=== PATIENT | female | born 1975 | race Caucasian/White ===

== ENCOUNTER → 2017-05-07 | Outpatient (CLI) | payer BC, OTHER ==
--- NOTE | 2017-05-07 10:04 | Diagnostic Imaging Report ---
Bilateral screening mammogram 2D views with tomosynthesis The current study was also evaluated with a Computer Aided Detection (CAD) system. Indication: Screening. No current complaints stated on the questionnaire. COMPARISON: 05/08/2016. Findings: The breasts are composed of heterogeneously dense parenchyma which may decrease mammographic sensitivity. No mass, architectural distortion or suspicious cluster of calcification developed from the previous exams. Allowing for technique and positional differences, no suspicious change is seen. IMPRESSION: Dense breasts with no definite change. ACR BI-RADS Category 2: Benign findings. Result letter will be mailed to the patient. Note: At least 10% of breast cancer is not imaged by mammography. Dictated by: Dictated on workstation # [id number]
== END ==
LOC: RAD 07:19
PROVIDERS: ATTEND Obstetrics & Gynecology
DX: Z12.31 Encounter for screening mammogram for malignant neoplasm of breast (principal)
CPT/HCPCS: 77067

== ENCOUNTER → 2018-05-09 | Outpatient (CLI) | payer OTHER ==
--- NOTE | 2018-05-09 09:23 | Diagnostic Imaging Report ---
Indication: Routine screening. Comparison is made with prior mammogram from 05/07/2017 and 05/08/2016. 2-D and 3-D bilateral screening mammography was performed with CAD. Both breasts remain heterogeneously dense, limiting the sensitivity of mammography. The parenchymal pattern is stable. No dominant mass or malignant-appearing microcalcifications are seen. The axillae are unremarkable. Impression: BI-RADS category 1 No mammographic features suspicious for malignancy are identified. Dictated by: Dictated on workstation # [id number]
== END ==
LOC: RAD 07:20
PROVIDERS: ATTEND Obstetrics & Gynecology
DX: Z12.31 Encounter for screening mammogram for malignant neoplasm of breast (principal)
CPT/HCPCS: 77067

== ENCOUNTER → 2019-05-15 | Outpatient (CLI) | payer OTHER ==
--- NOTE | 2019-05-15 12:06 | Diagnostic Imaging Report ---
INDICATION: Routine screening. COMPARISON: Comparison is made with prior mammograms from 05/09/2018 and 05/07/2017. TECHNIQUE: 2-D and 3-D bilateral screening mammography was performed. The current study was also evaluated with a Computer Aided Detection (CAD) system. 3-D tomosynthesis was also performed and reviewed. FINDINGS: Both breasts are heterogeneously dense, limiting the sensitivity of mammography. The parenchymal pattern is stable. No mass or malignant-appearing microcalcifications are seen. Axillae are unremarkable. IMPRESSION: No mammographic features suspicious for malignancy are identified. ACR BI-RADS Category 1: Negative. Result letter will be mailed to the patient. Note: At least 10% of breast cancer is not imaged by mammography. Dictated by: Dictated on workstation # [id number]
== END ==
LOC: RAD 07:52
PROVIDERS: ATTEND Obstetrics & Gynecology
DX: Z12.31 Encounter for screening mammogram for malignant neoplasm of breast (principal)
CPT/HCPCS: 77067

== ENCOUNTER → 2020-05-25 | Outpatient (CLI) | payer OTHER ==
--- NOTE | 2020-05-25 09:33 | Diagnostic Imaging Report ---
INDICATION: Routine screening. Comparison is made with prior mammogram from 05/15/2019 and 05/09/2018. 2-D and 3-D bilateral screening mammography was performed with CAD. Both breasts are heterogeneously dense, limiting the sensitivity of mammography. There are benign calcifications. No mass or malignant-appearing microcalcifications are seen. Axillae are unremarkable. IMPRESSION: BI-RADS Category 2 No mammographic features suspicious for malignancy are identified. ACR BI-RADS Category 2: Benign findings. Result letter will be mailed to the patient. Note: At least 10% of breast cancer is not imaged by mammography. Dictated by: Dictated on workstation # [id number]
== END ==
LOC: RAD 07:45
PROVIDERS: ATTEND Obstetrics & Gynecology
DX: Z12.31 Encounter for screening mammogram for malignant neoplasm of breast (principal)
CPT/HCPCS: 77063; 77067

== ENCOUNTER → 2021-06-09 | Outpatient (CLI) | payer OTHER ==
--- NOTE | 2021-06-09 09:26 | Diagnostic Imaging Report ---
INDICATION: Routine screening. COMPARISON is made with prior mammograms from 05/25/2020 and 05/15/2019. 2-D and 3-D bilateral screening mammography was performed with CAD. Both breasts are heterogeneously dense, limiting the sensitivity of mammography. No dominant mass or malignant-appearing microcalcifications are seen. Axillae are unremarkable. IMPRESSION: BI-RADS Category 1 No mammographic features suspicious for malignancy are identified. ACR BI-RADS Category 1: Negative. Result letter will be mailed to the patient. Note: At least 10% of breast cancer is not imaged by mammography. Dictated by: Dictated on workstation # [id number]
== END ==
LOC: RAD 07:30
PROVIDERS: ATTEND Obstetrics & Gynecology
DX: Z12.31 Encounter for screening mammogram for malignant neoplasm of breast (principal)
CPT/HCPCS: 77063; 77067

== ENCOUNTER 2022-04-16 05:28 | Outpatient (CLI) | payer OTHER ==
[~2022-04-16] VITALS: Ht 165.1 cm; Wt 75.9 kg
== END 2022-04-16 12:45 | disposition home or self-care (01) ==
LOC: PREOP 05:28
PROVIDERS: ATTEND Obstetrics & Gynecology
DX: Z01.818 Encounter for other preprocedural examination (principal)

== ENCOUNTER 2022-04-20 06:14 | Day surgery (SDC) | payer OTHER ==
[~2022-04-20] VITALS: Ht 165.1 cm; Wt 75.9 kg
[2022-04-20] VITALS (15 sets, daily range): BP systolic 79–122; BP diastolic 38–81
[2022-04-20] MEDS ORDERED: ceFAZolin INJECTION 1,000 MG in NS (IVPB) 50 ML IV ONE (06:30)
[2022-04-20] MEDS: LACTATED RINGERS 1,000 ML IV PRN ×3 (06:44→09:41)
[2022-04-20 06:54] LABS: BASOPHILS % (AUTO) 1 % (0-10); EOSINOPHILS # (AUTO) 0.3 10^3/uL (0.0-0.3); EOSINOPHILS % (AUTO) 5 % (0-10); HEMATOCRIT 43 % (35-52); LYMPHOCYTES # (AUTO) 1.7 10^3/uL (1.0-4.0); LYMPHOCYTES % (AUTO) 33 % (12-44); MEAN CORPUSCULAR HEMOGLOBIN 29 pg (25-34); MEAN CORPUSCULAR HGB CONC 32 g/dL (32-36); MEAN CORPUSCULAR VOLUME 89 fL (80-99); MEAN PLATELET VOLUME 9.3 fL (9.0-12.2); MONOCYTES # (AUTO) 0.5 10^3/uL (0.0-1.0); MONOCYTES % (AUTO) 9 % (0-12); NEUTROPHILS # (AUTO) 2.7 10^3/uL (1.8-7.8); NEUTROPHILS % (AUTO) 52 % (42-75); PLATELET COUNT 309 10^3/uL (130-400); WHITE BLOOD COUNT 5.2 10^3/uL (4.3-11.0)
[2022-04-20] MEDS ORDERED: BUP/EPI 0.25% 1:200,000 (MARCAINE) 30 ML VIAL ONE (06:54)
[2022-04-20] MEDS ORDERED: proPOfol 200 MG/20 ML (DIPRIVAN) VIAL IV ONE (07:03)
[2022-04-20] MEDS ORDERED: LIDOCAINE PF 2% 5 ML (XYLOCAINE) VIAL ONE (07:03)
[2022-04-20] MEDS ORDERED: MIDAZOLAM 2 MG/2 ML (VERSED) VIAL ONE (07:03)
[2022-04-20] MEDS ORDERED: fentaNYL INJ 100 MCG/2 ML AMP ONE (07:03)
[2022-04-20] MEDS ORDERED: ROCURONIUM 10 MG/ML 5 ML SYRINGE IV ONE (07:03)
[2022-04-20] MEDS ORDERED: KETOROLAC 30 MG/ML VIAL ONE (07:03)
[2022-04-20] MEDS ORDERED: ONDANSETRON 4 MG/2 ML (SDV) Z0FRAN ONE (07:03)
--- NOTE | 2022-04-20 07:14 | Progress Note-Pre Operative ---
Pre-Operative Progress Note Date of Available H&P: Apr 20, 2022 Date H&P Reviewed: Apr 20, 2022 Time H&P Reviewed: 07:14 History & Physical: H&P Reviewed, No changes noted Pre-Operative Diagnosis: Uterovaginal prolapse/menorrhagia/stress urinary incontinence DANIA FRIAS MD Apr 20, 2022 07:14
[2022-04-20] MEDS ORDERED: BENZOCAINE/MENTHOL (DERMOPLAST) 56 ML CAN TP PRN (07:15)
[2022-04-20] MEDS ORDERED: ONDANSETRON 4 MG/2 ML (SDV) Z0FRAN IVP PRN ×2 (07:15→09:45)
[2022-04-20] MEDS ORDERED: MEPERIDINE (DEMEROL) INJ 100 MG/ML IVP PRN (07:15)
[2022-04-20] MEDS ORDERED: oxyCODONE/APAP 5/325MG (PERCOCET 5) TABLET PO PRN (07:15)
[2022-04-20] MEDS ORDERED: PROMETHAZINE INJ 25 MG/ML (PHENERGAN) AMP IM PRN (07:15)
--- NOTE | 2022-04-20 07:15 | Progress Note-Post Operative ---
Post-Operative Progess Note Surgeon (s)/Spool Carrier (s) Surgeon DANIA FRIAS MD Spool Carrier: Cady Pre-Operative Diagnosis Uterovaginal prolapse/menorrhagia/stress urinary incontinence Post-Operative Diagnosis Same with pathology pending Procedure & Operative Findings Date of Procedure 04/20/22 Procedure Performed/Findings Total laparoscopic hysterectomy with bilateral salpingo-oophorectomy And anterior posterior vaginal repairs with enterocele repair as well as pubovaginal sling and cystoscopy by Dr. Rushing Anesthesia Type General anesthesia Estimated Blood Loss Estimated blood loss (mL): 550cc Specimens/Packing Specimens Removed Uterus and fallopian tubes And ovaries DANIA FRIAS MD Apr 20, 2022 07:15
[2022-04-20] MEDS: ESTROGENS CONJ INJECTION 25 MG in WATER (STERILE) FOR INJECTION 5 ML IV ONE ×2 (07:16→09:16)
[2022-04-20] MEDS ORDERED: DOCU-143 PO (07:20)
[2022-04-20] MEDS ORDERED: OXYC-199 PO (07:20)
[2022-04-20] MEDS ORDERED: ESTR2TAB4 PO (07:20)
[2022-04-20] MEDS ORDERED: IBUP-1780 PO (07:20)
--- NOTE | 2022-04-20 07:21 | Discharge Inst-Surgical ---
Discharge Inst-Surgical Depart Medication/Instructions New, Converted or Re-Newed RX: Transmitted to Pharmacy Consults/Follow Up Patient Instructions: As directed Orders & Referrals Follow Up Appt: Return to clinic in 1 week for suture removal Call to make follow up appt. for patient in 4 weeks. Activity: Rest for 24 hours, than as tolerated. Wound Care: May remove Band-Aid tomorrow. Replace as desired. Keep incisions clean and dry. Wash daily with soap and water. Prescriptions have been transmitted electronically to patient's pharmacy for Percocet/Motrin/Colace/estradiol Diet: As tolerated shower or tub bathe as desired. No driving for 24 hours, no alcoholic beverages for 24 hours, and nothing per vagina (no tampons, douching, or intercourse) for 8 weeks. Patient to return to the clinic as soon as possible for: Temperature greater than 101F, Severe Pain, Foul discharge from incision or vagina, Excessive Bleeding (more than a period). Activity Activity as Tolerated: No Diet Discharge Diet: No Restrictions DANIA FRIAS MD Apr 20, 2022 07:21
[2022-04-20] MEDS ORDERED: ESTROGENS CONJ. CREAM 30 GM (PREMARIN) TUBE ONE (07:47)
[2022-04-20] MEDS ORDERED: ESTRADIOL VAGINAL CREAM 42.5 GM (ESTRACE) VG ONE ×2 (07:50→08:01)
[2022-04-20] MEDS ORDERED: BUP/EPI 0.25% 1:200,000 (MARCAINE) 30 ML VIAL INJ ONE (07:58)
--- NOTE | 2022-04-20 08:32 | Progress Note-Post Operative ---
Post-Operative Progess Note Surgeon (s)/Control Systems Eng (s) Surgeon ALYX ESTEVEZ MD Control Systems Eng: DANIA FRIAS MD Pre-Operative Diagnosis VIVI Post-Operative Diagnosis SAME Procedure & Operative Findings Date of Procedure 04/20/22 Procedure Performed/Findings PVS AND CYSTO Anesthesia Type GENERAL Estimated Blood Loss Estimated blood loss (mL): NONE Specimens/Packing Specimens Removed NONE Packin GM ESTRACE VAG PACK ALYX ESTEVEZ MD Apr 20, 2022 08:32
[2022-04-20] MEDS ORDERED: PHENYLEPHRINE 100 MCG/ML 10 ML (ANESTHESIA) SYR ONE (08:56)
[2022-04-20] MEDS ORDERED: NEOSTIGMINE (BLOXIVERZ ) 1 MG/1ML 10 ML VIAL ONE (09:10)
[2022-04-20] MEDS ORDERED: GLYCOPYRROLATE 0.2 MG/ML (ROBINUL) 2 ML VIAL ONE (09:10)
[2022-04-20] MEDS ORDERED: SEVOFLURANE (ULTANE) 15 ML INHAL SOLN ONE (09:16)
[2022-04-20] MEDS ORDERED: ESTROGENS CONJ INJECTION 5 ML ONE (09:34)
[2022-04-20] MEDS ORDERED: WATER (STERILE) FOR INJECTION 10 ML ONE (09:34)
[2022-04-20] MEDS ORDERED: morphine INJ 10 MG/ML 1ML (SYR OR VIAL) IVP ONE (09:45)
[2022-04-20] MEDS ORDERED: HYDROmorphone 2 MG/ML VIAL (DILAUDID) IV ONE (09:45)
[2022-04-20] MEDS ORDERED: PROMETHAZINE INJ 25 MG/ML (PHENERGAN) AMP IVP ONE (09:45)
[2022-04-20] MEDS ORDERED: MEPERIDINE (DEMEROL) INJ 50 MG/ML IVP ONE (09:45)
[2022-04-20] MEDS ORDERED: morphine INJ 10 MG/ML 1ML (SYR OR VIAL) ONE (09:59)
--- NOTE | 2022-04-20 10:49 | OPERATIVE REPORT ---
DATE OF SERVICE: 04/20/2022 PREOPERATIVE DIAGNOSIS: On my part stress urinary incontinence. POSTOPERATIVE DIAGNOSIS: On my part stress urinary incontinence. OPERATION PERFORMED: Pubovaginal sling and cystoscopy. SURGEON: Colt Estevez MD SUPERVISOR COVERING AND LINING: Dr. Helm. ANESTHESIA: General. COMPLICATIONS: None. DESCRIPTION OF PROCEDURE: After Dr. Helm performed the first part of his surgery that he will dictate, we inserted the Daniels catheter recovering clear urine. I went ahead and passed the Desara one device on both sides using the described technique, the sling was sitting nicely under the mid urethra with no tension, twist and passage of the curved hemostat is between it and the underlying urethra. I removed the Daniels catheter, performed cystoscopy to confirm the integrity of the ureters, bladder and urethra with no foreign body and presence of the sling under the mid urethra. I left the bladder half full, removed the cystoscope and performed manual Valsalva maneuver. It was negative. I reinserted the Daniels catheter draining clear fluid. ESTIMATED BLOOD LOSS: None. The patient tolerated the procedure and anesthesia well and Dr. Helm proceeded with the rest of the surgery that he will dictate. CC: Dr. Gutiérrez -- requested, unable to deliver.. Job ID: [id number] DocumentID: [id number] Dictated Date: 04/20/2022 09:04:22 Special Needs Librarian Date: 04/20/2022 10:48:00 Dictated By: COLT ESTEVEZ MD
[2022-04-20] MEDS: D5 LR IV SOLUTION 1,000 ML IV SCH ×2 (12:57→20:26)
[2022-04-20] MEDS: KETOROLAC 30 MG/ML VIAL IV SCH ×2 (16:07→21:10)
--- NOTE | 2022-04-20 16:47 | Anesthesia-General Post-Op ---
General Patient Condition Mental Status/LOC: Same as Preop Cardiovascular: Satisfactory Nausea/Vomiting: Absent Respiratory: Satisfactory Pain: Controlled Complications: Absent Post Op Complications Complications None Follow Up Care/Instructions Patient Instructions None needed. Anesthesia/Patient Condition Patient Condition Patient is doing well, no complaints, stable vital signs, no apparent adverse anesthesia problems. No complications reported per nursing. CINDY JACINTO CRNA Apr 20, 2022 16:47
--- NOTE | 2022-04-20 17:51 | OPERATIVE REPORT ---
DATE OF SERVICE: 04/20/2022 PREOPERATIVE DIAGNOSES: Uterovaginal prolapse, menorrhagia, and stress urinary incontinence. POSTOPERATIVE DIAGNOSES: Uterovaginal prolapse, menorrhagia, and stress urinary incontinence. PROCEDURES PERFORMED: Total laparoscopic hysterectomy with bilateral salpingo-oophorectomy as well as anterior and posterior vaginal repair with enterocele repair and Dr. Russ did a pubovaginal sling and cystoscopy, which he will dictate. DESCRIPTION OF PROCEDURE: With the patient in the supine position, under satisfactory general anesthesia, she was repositioned in the dorsal lithotomy position in the [facility] and prepped and draped in the usual fashion for abdominal and vaginal surgery with da Bobby equipment assistance. Weighted speculum was placed in the posterior fornix of the vagina, the cervix exposed and grasped anteriorly with a single tooth tenaculum. The uterus sounded to 11.5 cm with uterine sound. The cervix was then serially dilated with Ok dilators to accommodate a RACHELLE II manipulator, which was placed using a 6 mm x 8 cm uterine probe and a 30 mm colpotomy ring. Sutures of #1 Vicryl were placed at 3 and 9 o'clock position of the cervix to affix the uterus to the manipulator. The tenaculum and speculum were removed. Daniels catheter was placed in the urinary bladder. The patient was brought in low dorsal lithotomy position. A 12 mm incision was made 10 cm superior to the umbilicus. A Veress needle was placed through the stab wound just above the umbilicus. Correct placement was confirmed with water drop test. The abdomen was insufflated with 2.4 liters of carbon dioxide. Veress needle was removed and a 12 mm Optiview laparoscopic port placed through the supraumbilical incision. Ports of 8 mm were placed through incisions of both sides 8 cm lateral to the umbilicus. The patient was placed in a Trendelenburg allowing the bowel was filled out of the pelvis. The Zixi Bobby column was advanced on the patient and docked. Operative instruments were placed in the right and left lateral ports and I retired to the Zixi Bobby console. At the console, using the vessel sealer on the right and bipolar fenestrated grasper on the left, the pelvis was first examined. The was quite large and lobular consistent with adenomyosis and/or uterine fibroids. Both fallopian tubes were normal in appearance. The ovaries were atretic appearing. There were extensive adhesions of the sigmoid to the left pelvic brim obstructing access to the IP ligament and to the tube and ovary. These adhesions were taken down with very careful meticulous dissection using cautery and blunt dissection and sharp dissection as well. With the adhesions taken free, the balance of the pelvis was examined. Both ureters were seen and were peristalsing. Laparoscope was rotated. The appendix was identified. It was a normal vermiform appendix, so it was left in situ. Attention was brought back to the pelvis. The right tube and ovary were grasped and elevated. The mesovarium was clamped, cauterized, and divided starting at the IP ligament. This was using the vessel sealer that was continued stepwise across to the round ligament, over the round ligament, down the broad ligament and down to the cardinal ligament, thus allowing for removal of the right tube and ovary eventually with the uterus. Same process was performed on the left and then the anterior lower uterine segment peritoneum was divided with monopolar roxy in place of the vessel sealer. The bladder was carefully dissected down off the lower uterine segment. Colpotomy incision was started at the 12 o'clock position onto the colpotomy ring. An incision was continued circumferentially until the entire colpotomy ring was exposed and then the uterus was extracted through the vagina with the tubes and ovaries still attached. There was some difficulty in extracting the uterus due to its size, but it eventually passed through the apex of the vagina and through the vaginal canal. Vaginal cuff was now closed with a running suture of V-Loc barbed suture starting from the right angle and continuing all the way across the cuff to the left angle. Care was taken to ensure inclusion of the uterine vessel pedicles bilaterally. Hemostasis was complete. Both ureters were seen to peristalsis. At this point, the laparoscopic portion of the procedure was complete and halted. The operative instruments were removed under direct vision as were the ports. The abdomen was evacuated of the insufflating gas in the process of removal of the ports. The fascia at the supraumbilical incision was closed with a [id number]-yc-hrpir suture of 2-0 Vicryl. The skin incisions were closed with interrupted nylon sutures. The patient was brought into the dorsal lithotomy position for the vaginal portion of the surgery. There was some bleeding noted. It was found that there was a right sulcus laceration extending from the vaginal apex to approximately of the way down the vaginal wall. This likely was traumatic injury from extracting the large uterus. The defect was repaired with a running locked suture of 3-0 Vicryl Rapide with good hemostasis and good reapproximation. The anterior repair was now affected by placing Daniel clamps on the anterior vaginal wall in the midline and opened in the midline with Metzenbaum scissors. The bladder was carefully dissected off the bladder wall back to the pubic rami bilaterally and then the endopelvic fascia and bladder wall were plicated with 2-0 Vicryl sutures, elevating the bladder and lengthening the urethra. At this point, Dr. Russ care of the patient and I remained to assist. Dr. Russ performed his pubovaginal sling and cystoscopy with reporting normal findings on cystoscopy. He will dictate his portion of the surgery. Upon completion of Dr. Russ's portion of surgery, I resumed care of the patient, resected the anterior vaginal wall tissue that was redundant and closed the vaginal wall with a running locked suture of 3-0 Vicryl Rapide. Good support was evident and good hemostasis was achieved. Dr. Russ left the Daniels catheter to dependent drainage and draining clear yellow urine. Posterior repair was now affected by placing Daniel clamps on the perineum and the hymenal ring at 5 and 7 o'clock position. An inverted triangle of skin was removed from the perineal body and upright triangle from the posterior vaginal floor. The rectovaginal space was entered sharply and dissected bluntly to the apex of the vagina. There was a small enterocele that was reduced and plicated with a 2-0 Vicryl pursestring suture obliterating the enterocele. Sutures of 2-0 Vicryl were then used to obliterate the rectovaginal space and to restore the perineal body. Redundant posterior vaginal muscularis and mucosa was then removed sharply. The vaginal wall was closed with a running locked suture of 3-0 Vicryl Rapide. The closure was continued past the hymenal ring down on the perineal body and then back up subcuticularly to the hymenal ring where the suture was tied. The vaginal incisions were examined for hemostasis. That being complete, the vagina was filled with Estrace vaginal cream and a pack of Kerlix gauze was placed. Daniels catheter was left to dependent drainage. Digital rectal exam confirmed no stricture or stenosis of the rectum and no sutures into or through rectal mucosa. Sponge and needle counts were correct and hemostasis assured. Blood loss around 550 mL. The patient was uneventfully awakened from her general anesthesia and transferred to recovery room in stable condition. Job ID: [id number] DocumentID: [id number] Dictated Date: 04/20/2022 10:13:02 Load Test Mechanic Date: 04/20/2022 17:49:00 Dictated By: DANIA FRIAS MD
[2022-04-20] MEDS ORDERED: MEPERIDINE (DEMEROL) INJ 100 MG/ML IM PRN (19:15)
[2022-04-21 03:52] VITALS: BP 124/63
[2022-04-21] MEDS: KETOROLAC 30 MG/ML VIAL IV SCH (03:52)
[2022-04-21] MEDS ORDERED: IBUPROFEN 800 MG (MOTRIN) TAB PO SCH (07:15)
[2022-04-21 08:28] VITALS: BP 123/70
[2022-04-21] MEDS ORDERED: ESTRADIOL 1 MG TAB (ESTRACE) PO SCH (09:00)
[2022-04-21] MEDS ORDERED: DOCUSATE SODIUM 100 MG (COLACE) CAP PO SCH (09:00)
--- NOTE | 2022-04-21 09:52 | Progress Note ---
Standard Progress Note Progress Notes/Assess & Plan Date Seen by a Provider: Apr 21, 2022 Time Seen by a Provider: 09:51 Progress/Assessment & Plan This patient is without complaint. She is ambulating, voiding, tolerating oral intake well and has good pain control. She denies headache, denies nausea vomiting, denies chest pain, and denies shortness of breath. Vital Signs Date Time Temp Pulse Resp B/P (MAP) Pulse Ox O2 Delivery O2 Flow Rate FiO2 04/21/22 08:28 37.3 96 18 123/70 (87) 98 Room Air 04/21/22 03:52 36.6 84 18 124/63 (83) 98 Room Air 04/20/22 23:35 37.4 85 18 122/60 (80) 98 Room Air 04/20/22 20:26 36.8 68 18 122/61 (81) 98 Room Air 04/20/22 16:32 Room Air 04/20/22 16:02 36.4 73 18 92/53 (66) 98 Room Air 04/20/22 12:10 60 18 95/52 (66) 98 Room Air 04/20/22 11:15 65 16 83/53 (63) 97 Room Air 04/20/22 10:40 35.8 60 16 93/55 (68) 97 Room Air 04/20/22 10:34 Room Air 04/20/22 10:30 36.6 16 94/52 (66) 100 Room Air 04/20/22 10:20 17 96/50 (65) 100 OxyMask 2.00 04/20/22 10:15 17 96/56 (69) 100 OxyMask 2.00 04/20/22 10:15 OxyMask 2.00 04/20/22 10:00 OxyMask 4.00 04/20/22 09:55 14 79/42 (54) 100 OxyMask 2.00 I & O 04/21/22 07:00 Intake Total 5300 ml Output Total 2275 ml Balance 3025 ml Vital signs are stable. Patient is afebrile. Abdomen is benign. Extremities show no clubbing or cyanosis. There is no Homans' sign. Pelvic exam is deferred Assessment and plan Postoperative day #1 doing well. Plan is for routine convalescent care with discharge home today and follow-up in clinic Final Diagnosis Uterovaginal prolapse and stress urinary incontinence DANIA FRIAS MD Apr 21, 2022 09:52
[2022-04-21] MEDS ORDERED: CIPR250S3 PO (10:02)
[2022-04-21 10:20] VITALS: BP 123/70
== END 2022-04-21 10:45 | disposition home or self-care (01) ==
LOC: SDC 06:14 → WS 10:19 → SDC 04-21 10:45
PROVIDERS: ATTEND Obstetrics & Gynecology
DX: D25.1 Intramural leiomyoma of uterus (principal); N80.03 Adenomyosis of the uterus; N83.8 Other noninflammatory disorders of ovary, fallopian tube and broad ligament; N83.292 Other ovarian cyst, left side; N83.291 Other ovarian cyst, right side; N39.3 Stress incontinence (female) (male); N81.4 Uterovaginal prolapse, unspecified
CPT/HCPCS: 57265; 57288; 58571; 84703; 85025; 87081; 94664; C1771; 36415; 88307

== ENCOUNTER → 2022-06-12 | Outpatient (CLI) | payer OTHER ==
[~2022-06-12] MED LIST: CIPR250S3 PO; DOCU-143 PO; ESTR2TAB4 PO; IBUP-1780 PO; OXYC-199 PO
--- NOTE | 2022-06-12 15:24 | Diagnostic Imaging Report ---
INDICATION: Routine screening. Comparison is made with prior mammogram 06/09/2021 and 05/25/2020. 2-D and 3-D bilateral screening mammography was performed with CAD. Both breasts are heterogeneously dense, limiting the sensitivity of mammography. The parenchymal pattern is stable. No mass or malignant-appearing microcalcifications are seen. There are benign calcifications. Axillae are unremarkable. IMPRESSION: No mammographic features suspicious for malignancy are identified. ACR BI-RADS Category 2: Benign findings. Result letter will be mailed to the patient. Note: At least 10% of breast cancer is not imaged by mammography. BI-RADS Category 2 Dictated by: Dictated on workstation # [id number]
== END ==
LOC: RAD 07:17
PROVIDERS: ATTEND Obstetrics & Gynecology
DX: Z12.31 Encounter for screening mammogram for malignant neoplasm of breast (principal)
CPT/HCPCS: 77063; 77067